=== PATIENT | male | born 1955 | race Caucasian/White ===

== ENCOUNTER 2017-04-05 08:44 | Inpatient (IN) | payer MEDICAID ==
[~2017-04-05] VITALS: Ht 170.2 cm; Wt 77.1 kg
[2017-04-05 09:39] LABS: BASOPHIL % 0.8 % (0-2); PLATELET COUNT 298 x10^3mcL (130-400); RED CELL DISTRIBUTION WIDTH 13.7 % (11.5-14.5)
[2017-04-05 09:54] LABS: CALCIUM 8.7 mg/dL (8.5-10.1); CARBON DIOXIDE 24.1 mmol/L (21-32); CHLORIDE SERUM 104 mmol/L (98-107); CREATININE SERUM 1.1 mg/dL (0.7-1.3); GFR1 > 60 mL/min; GLUCOSE SERUM 104 mg/dL (74-106); POTASSIUM SERUM 4.1 mmol/L (3.5-5.1); SODIUM SERUM 138 mmol/L (136-145)
[2017-04-05 09:58] LABS: ALBUMIN 3.5 g/dL (3.4-5.0); ALKALINE PHOSPHATASE 97 U/L (46-116); ALT/SGPT 28 U/L (16-63); AST/SGOT 14 U/L (15-37); BILIRUBIN TOTAL 0.67 mg/dL (0.20-1.00); TOTAL PROTEIN, SERUM 7.5 g/dL (6.4-8.2)
[2017-04-05 10:03] LABS: CHOLESTEROL 213 mg/dL (<200)
[2017-04-05 11:48] LABS: AMPHETAMINE QUAL UR NONE DETECTED (NEG <=1000)
[2017-04-05 12:38] LABS: microscopic required? NO
[2017-04-05 12:51] LABS: UA SPECIFIC GRAVITY 1.025 (1.005-1.035); urine erythrocyte NEGATIVE (NEGATIVE)
[2017-04-05 12:53] LABS: MAGNESIUM 2.2 mg/dL (1.8-2.4); PHOSPHOROUS 3.1 mg/dL (2.5-4.9)
[2017-04-05 13:02] LABS: CHOLESTEROL/HDL RATIO 4.6
[2017-04-05 13:04] LABS: FREE T4 1.15 ng/dL (0.76-1.46); FREE THYROXINE INDEX 3.4 ug/dL (1.4-4.5); T4(THYROXINE) 10.3 ug/dL (4.7-13.3)
[2017-04-05 13:06] LABS: T3 TOTAL 1.01 ng/mL
[2017-04-05 13:21] VITALS: BP 118/62
[2017-04-05 14:24] VITALS: BP 103/66
[2017-04-05 17:59] VITALS: BP 128/79
[2017-04-05 21:09] VITALS: BP 127/64
[2017-04-06 05:31] LABS: BASOPHIL % 0.8 % (0-2); PLATELET COUNT 261 x10^3mcL (130-400); RED CELL DISTRIBUTION WIDTH 13.8 % (11.5-14.5)
[2017-04-06 05:43] VITALS: BP 140/77
[2017-04-06 06:15] LABS: CALCIUM 8.7 mg/dL (8.5-10.1); CARBON DIOXIDE 25.2 mmol/L (21-32); CHLORIDE SERUM 105 mmol/L (98-107); CREATININE SERUM 1.2 mg/dL (0.7-1.3); GFR1 > 60 mL/min; GLUCOSE SERUM 103 mg/dL (74-106); MAGNESIUM 2.4 mg/dL (1.8-2.4); PHOSPHOROUS 3.8 mg/dL (2.5-4.9); POTASSIUM SERUM 4.7 mmol/L (3.5-5.1); SODIUM SERUM 137 mmol/L (136-145)
[2017-04-06] MEDS ORDERED: AUG500 PO (09:06)
[2017-04-06] MEDS ORDERED: LAC PO (09:07)
[2017-04-06] MEDS ORDERED: LOVASTATIN20 MG PO (09:08)
[2017-04-06] MEDS ORDERED: IBUPROFEN400 MG PO (09:08)
[2017-04-06] MEDS ORDERED: AMBIEN10 MG PO (09:08)
[2017-04-06] MEDS ORDERED: BENAZEPRIL HYDR20 M1 PO (09:09)
[2017-04-06 09:38] VITALS: BP 140/77
[2017-04-06 09:49] VITALS: BP 143/74
== END 2017-04-06 10:20 | disposition home or self-care (01) | DRG 114 ==
LOC: ED 08:44 → DU 11:51
PROVIDERS: Specialist; ADMIT Family Medicine
DX: K04.7 Periapical abscess without sinus (principal); N17.0 Acute kidney failure with tubular necrosis; I10 Essential (primary) hypertension; E78.5 Hyperlipidemia, unspecified; Z68.27 Body mass index [BMI] 27.0-27.9, adult; Z86.73 Personal history of transient ischemic attack (TIA), and cerebral infarction without residual deficits
CPT/HCPCS: 83880; 84439; G0480; J0696; J1885; J2405; J3010; J3490; J7030; J8597; Q0092; Q9967